=== PATIENT | female | born 1980 | race Caucasian/White ===

== ENCOUNTER 2017-09-28 22:15 | Emergency (ER) | payer BC, OTHER ==
[2017-09-28] MEDS: ACETAMINOPHEN 500 MG TAB PO (23:36)
[2017-09-29] MEDS: SUMATRIPTAN 25 MG TAB PO (01:31)
== END 2017-09-29 01:33 | disposition home or self-care (01) ==
LOC: FTE 09-29 01:33
DX: B34.9 Viral infection, unspecified (principal)
CPT/HCPCS: 87430; 87880; 93005; 99284-25

== ENCOUNTER 2017-12-12 11:26 | Emergency (ER) | payer BC, OTHER ==
[2017-12-12] MEDS: KETOROLAC 15 MG INJ IV (12:33)
[2017-12-12] MEDS: METOCLOPRAMIDE 10 MG INJ IV (12:33)
[2017-12-12] MEDS: SOD CHLORIDE 0.9% 1,000 ML IV (12:33)
[2017-12-12] MEDS: DIPHENHYDRAMINE 50 MG INJ IV (12:33)
== END 2017-12-12 13:58 | disposition home or self-care (01) ==
LOC: E/R 11:26
DX: J06.9 Acute upper respiratory infection, unspecified (principal); B34.9 Viral infection, unspecified; R07.89 Other chest pain
CPT/HCPCS: 93005; 96374; 96375; 99284-25